=== PATIENT | male | born 1990 | race Two or more races ===

== ENCOUNTER 2023-04-12 21:17 | Emergency (ER) | payer MEDICAID, OTHER ==
[~2023-04-12] VITALS: Ht 167.6 cm; Wt 86.0 kg
[2023-04-12 21:17] VITALS: BP 133/88; RESP 20; O2SAT 98
[2023-04-12 21:57] LABS: Basophils # (auto) 0.1 10 ^3/uL (0-0.2); Basophils % (auto) 0.9 % (0.0-2.0); Eosinophils # (auto) 0.1 10 ^3/uL (0-0.8); Eosinophils % (auto) 1.9 % (0.0-7.0); Hematocrit 42.6 % (41.0-53.0); Hemoglobin 14.3 g/dL (13.5-17.5); Lymphocytes # (auto) 3.1 10 ^3/uL (0.4-5.4); Lymphocytes % (auto) 38.2 % (10.0-50.0); Mean Corpuscular Hemoglobin 31.5 pg (28.0-32.0); Mean Corpuscular Hgb Conc. 33.5 g/dL (32.0-36.0); Mean Corpuscular Volume 93.9 fL (80.0-100.0); Monocytes # (auto) 0.8 10 ^3/uL (0-1.3); Monocytes % (auto) 9.6 % (0.0-12.0); Neutrophils % (auto) 49.4 % (37.0-80.0); Red Blood Cells 4.53 10^6/uL (4.5-5.90); Red Cell Distribution Width 13.1 % (11.8-14.3)
[2023-04-12] MEDS ORDERED: SODIUM CHLORIDE 0.9% 1,000 ML IV ONE (22:00)
[2023-04-12] MEDS ORDERED: MECLIZINE HCL 25 MG TAB PO ONE (22:00)
[2023-04-12] MEDS ORDERED: cefTRIAXone SOD 1,000 MG VL IM ONE (22:00)
[2023-04-12 22:11] LABS: Chloride 106 mmol/L (98-107); Potassium 3.6 mmol/L (3.5-5.1); Sodium 140 mmol/L (136-145)
[2023-04-12 22:12] LABS: Anion Gap 5 (5-15); Carbon Dioxide 29 mmol/L (20-30)
[2023-04-12 22:13] LABS: Calcium 9.3 mg/dL (8.7-10.4)
[2023-04-12 22:17] LABS: Glucose 107 mg/dL (74-106)
[2023-04-12 22:37] VITALS: PULSE 66
[2023-04-12 22:41] LABS: BUN/Creatinine Ratio 9.2 (10.0-20.0); Blood Urea Nitrogen 9 mg/dL (9-23)
[2023-04-12] MEDS ORDERED: AMOX500T3 PO (23:04)
[2023-04-12] MEDS ORDERED: MECL1TAB42 PO (23:04)
[2023-04-12] MEDS ORDERED: CLIN300C70 PO (23:04)
== END 2023-04-13 01:58 | disposition home or self-care (01) ==
LOC: ER 21:17
DX: L03.012 Cellulitis of left finger (principal); R42 Dizziness and giddiness; R11.2 Nausea with vomiting, unspecified
CPT/HCPCS: 36415; 80048; 82962; 85025; 93005